=== PATIENT | male | born 1980 | race Caucasian/White ===

== ENCOUNTER 2022-03-24 21:40 | Emergency (ER) | payer BC ==
[~2022-03-24] VITALS: Ht 182.9 cm; Wt 87.5 kg
[2022-03-24 22:24] VITALS: BP_SYST 127
--- NOTE | 2022-03-24 22:28 | NUR ---
PATIENT HAVING INCREASINGLY WORSE CHEST PAIN SINCE FRIDAY WITHOUT RELIEF. SEEN AT BUT NO BLOOD WORK DONE, "GIVEN A SHOT" AND D/C'D. FEELING MORE TIRED LATELY WELL, NO OTHER SYMPTOMS AT THIS TIME.
[2022-03-24] MEDS ORDERED: ASPIRIN 81 MG TAB.CHEW PO ONE (22:30)
[2022-03-24 23:06] LABS: BASOPHILS % (AUTO) 0.5 % (0.0-2.0); EOSINOPHILS # (AUTO) 0.1 K/uL (0.0-0.4); EOSINOPHILS % (AUTO) 1.3 % (0.0-4.0); HEMOGLOBIN 12.6 g/dL (14.0-18.0); LYMPHOCYTES # (AUTO) 1.5 K/uL (1.0-5.5); LYMPHOCYTES % (AUTO) 19.2 % (20.5-51.5); MEAN CORPUSCULAR HEMOGLOBIN 28 pg (27-31); MEAN CORPUSCULAR HGB CONC 34 % (32-36); MEAN CORPUSCULAR VOLUME 83 fL (79.0-98.0); MONOCYTES # (AUTO) 1.1 K/uL (0.0-1.0); MONOCYTES % (AUTO) 13.5 % (1.7-9.3); NEUTROPHILS # (AUTO) 5.3 K/uL (1.8-7.7); NEUTROPHILS % (AUTO) 65.5 % (40.0-70.0); PLATELET COUNT (AUTO) 264 K/uL (130-430); RED BLOOD CELL COUNT(AUTO) 4.48 MIL/uL (4.2-6.2); RED CELL DISTRIBUTION WIDTH 13.7 % (9.0-15.0)
[2022-03-24 23:10] LABS: ANION GAP 8 (5-15); CALCIUM 8.8 mg/dL (8.4-11.0); CHLORIDE 101 mmol/L (98-107); CREATININE 1.17 mg/dL (0.55-1.30); GLUCOSE 118 mg/dL (70-99); POTASSIUM 3.8 mmol/L (3.5-5.1); SODIUM SERUM 137 mmol/L (136-145); UREA NITROGEN, BLOOD 19 mg/dL (8-21)
[2022-03-24 23:15] LABS: GFR AFRICAN AMERICAN 88 mL/min (>90)
[2022-03-24 23:18] LABS: ALANINE AMINOTRANSFERASE 111 U/L (12-78); ALBUMIN 3.3 g/dL (3.4-4.8); ASPARTATE AMINOTRANSFERASE 114 U/L (10-37); TOTAL BILIRUBIN 0.7 mg/dL (0.0-1.0)
[2022-03-25] MEDS ORDERED: ASPIRIN 81 MG TAB.CHEW ONE (01:54)
--- NOTE | 2022-03-25 02:00 | NUR ---
PT BIB AMB WITH CHARGE NURSE. C/O RIGHT BREAST/ RIB PAIN SINCE FRIDAY. SEEN AT GIVEN TORDOL SHOT WITH RELIEF, BUT "SPIN CAME BACK. DENIES N/C/D OR FEVER. "FEELS UNCOMFORTABLY" PAIN LEVAL 02/22 AT THIS TIME VSS CONTINUED MONITPORING. DR CALI AT BEDSIDE EXAM/ EVAL
--- NOTE | 2022-03-25 02:56 | NUR ---
US being done by bedside.
--- NOTE | 2022-03-25 03:20 | NUR ---
YANELIS RN U/S AT BEDSIDE
--- NOTE | 2022-03-25 03:45 | NUR ---
PT RESTING COMFORTABLY PAIN LEVAL /10. "FEELS BETTER". UP TO BR AMB BY SELF.
[2022-03-25 04:21] VITALS: BP_SYST 122
--- NOTE | 2022-03-25 04:23 | NUR ---
PT STABLE TO D/C TO HOME. TO LOBBY AMB WITH ALL PAPERWORK IN HAND
== END 2022-03-25 04:21 | disposition home or self-care (01) ==
LOC: SED 21:40
DX: R07.89 Other chest pain (principal); N20.0 Calculus of kidney; R74.01 Elevation of levels of liver transaminase levels; Z79.899 Other long term (current) drug therapy
CPT/HCPCS: 36415; 71045; 76705; 80053; 83880; 84484; 85025; 93005; 99285